=== PATIENT | female | born 1960 | race Caucasian/White ===

== ENCOUNTER → 2016-10-24 | Outpatient (CLI) | payer MEDICARE, OTHER ==
[~2016-10-24] MED LIST: ACETAMINOPHEN-1 EAC1 PO; ALBUTEROL2.5 MG/3 M INH; FORTAMET500 MG PO; NEURONTIN 400400 MG PO; PERCOCET 5-3251 EACH PO; SIMVASTATIN40 MG PO; STOOL SOFTENER250 MG PO; TRAZODONE HCL50 MG PO; VENTOLIN HFA 66.7 GM INH; VOLTAREN EC 7575 MG PO; ZESTRIL20 MG PO; ZOFRAN4 MG PO; [UNRECOGNIZED DRUG - REMARK] PO
[2016-10-24 10:04] LABS: BUN/CREATININE RATIO 21 (0-10)
== END ==
LOC: OPSV2 08:30
PROVIDERS: Orthopaedic Surgery
DX: Z01.812 Encounter for preprocedural laboratory examination (principal); Z01.810 Encounter for preprocedural cardiovascular examination; Z01.818 Encounter for other preprocedural examination; M75.101 Unspecified rotator cuff tear or rupture of right shoulder, not specified as traumatic; J44.9 Chronic obstructive pulmonary disease, unspecified; J45.909 Unspecified asthma, uncomplicated
CPT/HCPCS: 36415; 71020; 80048; 83036; 93005

== ENCOUNTER → 2016-10-25 | Day surgery (SDC) | payer MEDICARE, OTHER | END | disposition home or self-care (01) | LOC: OR 10:09 | PROVIDERS: Orthopaedic Surgery | PROC: 0PB94ZZ Excision of Right Clavicle, Percutaneous Endoscopic Approach (ICD-10-PCS; principal; 2016-10-25 14:00) | PROC: 0RBJ4ZZ Excision of Right Shoulder Joint, Percutaneous Endoscopic Approach (ICD-10-PCS; 2016-10-25 14:00) | DX: S46.011A Strain of muscle(s) and tendon(s) of the rotator cuff of right shoulder, initial encounter (principal); M19.011 Primary osteoarthritis, right shoulder; S46.111A Strain of muscle, fascia and tendon of long head of biceps, right arm, initial encounter; M75.51 Bursitis of right shoulder; I10 Essential (primary) hypertension; E78.5 Hyperlipidemia, unspecified; J44.9 Chronic obstructive pulmonary disease, unspecified; J45.909 Unspecified asthma, uncomplicated; M19.90 Unspecified osteoarthritis, unspecified site; K21.9 Gastro-esophageal reflux disease without esophagitis; E11.40 Type 2 diabetes mellitus with diabetic neuropathy, unspecified; G89.29 Other chronic pain; F17.210 Nicotine dependence, cigarettes, uncomplicated; Z79.899 Other long term (current) drug therapy; X50.0XXA Overexertion from strenuous movement or load, initial encounter | CPT/HCPCS: 73030; 82962; J0171; J0690; J2250; J2370; J2710; J2795; J3010; J7030; J7120 ==